=== PATIENT | female | born 1980 | race Caucasian/White ===

== ENCOUNTER → 2019-04-05 | Outpatient (REF) | LOC: M LAB LCGH 14:41 | PROVIDERS: ATTEND Surgery | DX: D22.5 Melanocytic nevi of trunk (principal) ==

== ENCOUNTER → 2019-06-06 | Outpatient (REF) | payer BC | LOC: M LAB LCGH 11:56 | PROVIDERS: ATTEND Obstetrics & Gynecology | DX: Z12.4 Encounter for screening for malignant neoplasm of cervix (principal) | CPT/HCPCS: 87624; G0123 ==